=== PATIENT | female | born 1990 ===

== ENCOUNTER 2017-12-19 12:20 | Emergency (ER) | payer MEDICAID, OTHER ==
[~2017-12-19] VITALS: Ht 170.2 cm; Wt 104.6 kg
[~2017-12-19 12:20] MED LIST: CALC500T PO; DOCU-131 PO; IBUP-1222 PO; OXYC-302 PO; PREN1TAB56 PO
[2017-12-19 13:06] LABS: BASOPHILS # (AUTO) 0.25 x10^3/uL (0-0.1); BASOPHILS % (AUTO) 2 % (0-1); EOSINOPHILS # (AUTO) 0.34 x10^3/uL (0-0.4); EOSINOPHILS % (AUTO) 3 % (1-7); LYMPHOCYTES # (AUTO) 3.07 x10^3/uL (1-3.4); LYMPHOCYTES % (AUTO) 25 % (22-44); MD NO; MEAN CORPUSCULAR HEMOGLOBIN 31.2 pg (27.0-34.8); MEAN CORPUSCULAR HGB CONC 33.7 g/dL (32.4-35.8); MEAN CORPUSCULAR VOLUME 92.6 fL (80-100); MEAN PLATELET VOLUME 8.6 fL (7.4-10.4); MONOCYTES # (AUTO) 0.79 x10^3/uL (0.2-0.8); MONOCYTES % (AUTO) 6 % (2-9); NEUTROPHILS # (AUTO) 7.92 x10^3/uL (1.8-6.8); NEUTROPHILS % (AUTO) 64 % (42-75); PLATELET COUNT 363 x10^3/uL (130-400); RED CELL DISTRIBUTION WIDTH 12.5 % (9.6-15.2)
[2017-12-19] MEDS ORDERED: PREN1TAB60 PO (13:08)
[2017-12-19 13:17] LABS: MICROSCOPIC INDICATED
[2017-12-19 13:34] LABS: CULTURE INDICATED? NO
[2017-12-19 15:23] VITALS: BP 108/64
== END 2017-12-19 15:27 | disposition home or self-care (01) ==
LOC: ED 14:46
DX: O20.0 Threatened abortion (principal)
CPT/HCPCS: 36415; 76801; 81001; 84702; 85025; 99285

== ENCOUNTER 2017-12-22 18:22 | Emergency (ER) | payer MEDICAID, OTHER ==
[~2017-12-22] VITALS: Ht 170.2 cm; Wt 100.0 kg
[~2017-12-22 18:22] MED LIST changes: +PREN1TAB60 PO
[2017-12-22] MEDS ORDERED: SODIUM CHLORIDE FLUSH 10ML SYR IVF ONE ×2 (18:30→20:00)
[2017-12-22 18:52] LABS: BASOPHILS # (AUTO) 0.12 x10^3/uL (0-0.1); BASOPHILS % (AUTO) 1 % (0-1); EOSINOPHILS # (AUTO) 0.26 x10^3/uL (0-0.4); EOSINOPHILS % (AUTO) 2 % (1-7); LYMPHOCYTES # (AUTO) 2.67 x10^3/uL (1-3.4); LYMPHOCYTES % (AUTO) 23 % (22-44); MD NO; MEAN CORPUSCULAR HEMOGLOBIN 31.8 pg (27.0-34.8); MEAN CORPUSCULAR HGB CONC 34.4 g/dL (32.4-35.8); MEAN CORPUSCULAR VOLUME 92.3 fL (80-100); MEAN PLATELET VOLUME 8.8 fL (7.4-10.4); MONOCYTES # (AUTO) 0.54 x10^3/uL (0.2-0.8); MONOCYTES % (AUTO) 5 % (2-9); NEUTROPHILS # (AUTO) 8.04 x10^3/uL (1.8-6.8); NEUTROPHILS % (AUTO) 69 % (42-75); PLATELET COUNT 366 x10^3/uL (130-400); RED BLOOD COUNT 4.66 x10^6/uL (3.82-5.3); RED CELL DISTRIBUTION WIDTH 12.3 % (9.6-15.2)
[2017-12-22 19:00] LABS: ALBUMIN 3.9 g/dL (3.4-5.0); ANION GAP 8 mmol/L (5-15); CHLORIDE 105 mmol/L (98-107)
[2017-12-22] MEDS ORDERED: SODIUM CHLORIDE 0.9% 1,000 ML IV ONE (19:51)
[2017-12-22] MEDS ORDERED: MORPHINE SULFATE 4 MG/ML, 1ML ONE (19:52)
[2017-12-22] MEDS ORDERED: ONDANSETRON ODT 4 MG ONE (19:52)
[2017-12-22] MEDS ORDERED: ONDANSETRON ODT 4 MG PO ONE (20:00)
[2017-12-22] MEDS ORDERED: SODIUM CHLORIDE 0.9% 1,000ML IVBOLUS ONE (20:00)
[2017-12-22] MEDS ORDERED: MORPHINE SULFATE 4 MG/ML, 1ML IVPush PRN (20:00)
[2017-12-22 21:20] VITALS: BP 126/82
== END 2017-12-22 22:22 | disposition home or self-care (01) ==
LOC: ED 22:04
DX: O03.6 Delayed or excessive hemorrhage following complete or unspecified spontaneous abortion (principal)
CPT/HCPCS: 36415; 76801; 80048; 82040; 84702; 85025; 88305; 96374; 99285; J7030; Q0162

== ENCOUNTER 2018-04-03 05:59 | Day surgery (SDC) | payer MEDICAID ==
[~2018-04-03] VITALS: Ht 170.2 cm; Wt 98.8 kg
[2018-04-03] MEDS ORDERED: LACTATED RINGERS 1,000 ML IV SCH (06:24)
[2018-04-03] MEDS ORDERED: BUDE10.22 INH (06:26)
[2018-04-03] MEDS ORDERED: VASOPRESSIN 20 UNIT/ML, 1ML ONE (06:32)
[2018-04-03] MEDS ORDERED: BUPIVACAINE/PF-EPI 0.5% 1:200K ONE (06:32)
[2018-04-03 06:34] VITALS: BP 130/88
[2018-04-03] MEDS ORDERED: MIDAZOLAM 1 MG/ML, 2ML ONE (07:20)
[2018-04-03] MEDS ORDERED: FENTANYL PF 250 MCG/5ML ONE (07:20)
[2018-04-03] MEDS ORDERED: PROPOFOL 10 MG/ML, 20ML ONE (07:24)
[2018-04-03] MEDS ORDERED: NEOSTIGMINE 1 MG/ML, 10ML ONE (07:24)
[2018-04-03] MEDS ORDERED: GLYCOPYRROLATE 0.2MG/1ML, 5ML ONE (07:24)
[2018-04-03] MEDS ORDERED: DEXAMETHASONE 4 MG/ML, 1ML ONE (07:24)
[2018-04-03] MEDS ORDERED: ROCURONIUM 10 MG/ML,10ML ONE (07:24)
[2018-04-03] MEDS ORDERED: CEFAZOLIN 1,000 MG ONE (07:24)
[2018-04-03] MEDS ORDERED: ONDANSETRON 2MG/ML, 2ML ONE (07:24)
[2018-04-03] MEDS ORDERED: ACETAMINOPHEN 500 MG TABLET PO ONE (07:30)
[2018-04-03] MEDS ORDERED: GABAPENTIN 300 MG CAPSULE PO ONE (07:30)
[2018-04-03] MEDS ORDERED: METHYLENE BLUE 10 MG/ML 10ML ONE (07:48)
[2018-04-03] MEDS ORDERED: OXYcodone 5 MG/5 ML ORAL.SOL UDC PO PRN (08:30)
[2018-04-03] MEDS ORDERED: SCOPOLAMINE PATCH, 1.5MG PATCH.TD72 TD PRN (08:30)
[2018-04-03] MEDS ORDERED: LORazepam 2 MG/ML, 1ML IVPush PRN (08:30)
[2018-04-03] MEDS ORDERED: MEPERIDINE/PF 25MG/0.5ML IVPush PRN (08:30)
[2018-04-03] MEDS ORDERED: HYDROmorphone 2 MG/ML, 1ML IVPush PRN (08:30)
[2018-04-03] MEDS ORDERED: METOCLOPRAMIDE 5 MG/ML, 2ML IV PRN (08:30)
[2018-04-03] MEDS ORDERED: LABETALOL 5MG/ML, 20ML IV PRN (08:30)
[2018-04-03] MEDS ORDERED: ALBUTEROL/IPRATROPIUM 2.5MG/0.5MG, 3 ML NPPB PRN (08:30)
[2018-04-03] MEDS ORDERED: ALBUTEROL SULFATE 2.5 MG/3 ML ONE (08:44)
[2018-04-03] MEDS ORDERED: ALBUTEROL/IPRATROPIUM 2.5MG/0.5MG, 3 ML ONE (08:52)
[2018-04-03] MEDS ORDERED: FENTANYL PF 100 MCG/2ML ONE (08:55)
[2018-04-03] MEDS ORDERED: OXYcodone 5 MG/5 ML ORAL.SOL UDC ONE (08:56)
[2018-04-03] MEDS: FENTANYL PF 100 MCG/2ML IV PRN ×4 (08:59→09:26)
[2018-04-03] MEDS ORDERED: PROMETHAZINE 12.5 MG SUPP PR ONE (10:30)
[2018-04-03] MEDS ORDERED: morphine SULFATE 10 MG/ML, 1ML ONE ×2 (10:47→12:05)
[2018-04-03] MEDS: MORPHINE SULFATE 4 MG/ML, 1ML IVPush PRN ×2 (10:51→12:11)
[2018-04-03] MEDS ORDERED: OXYcodone/APAP 5/325MG TABLET PO PRN (12:00)
== END 2018-04-03 14:20 | disposition home or self-care (01) ==
LOC: OUT 05:59
PROVIDERS: ATTEND Obstetrics & Gynecology
DX: E28.2 Polycystic ovarian syndrome (principal); Q51.3 Bicornate uterus; N73.6 Female pelvic peritoneal adhesions (postinfective); J45.909 Unspecified asthma, uncomplicated; Z90.5 Acquired absence of kidney; Z98.890 Other specified postprocedural states
CPT/HCPCS: 58350; 58661; 81025; 94640; J0690; J1100; J2250; J2405; J2704; J2710; J3010; J3490; J7120; J7620; Q9968

== ENCOUNTER 2018-08-04 16:28 | Emergency (ER) | payer MEDICAID ==
[~2018-08-04] VITALS: Ht 170.2 cm; Wt 101.8 kg
[~2018-08-04 16:28] MED LIST changes: +BUDE10.22 INH
[2018-08-04] MEDS ORDERED: SODIUM CHLORIDE FLUSH 10ML SYR IVF ONE (17:00)
[2018-08-04] MEDS ORDERED: ONDANSETRON 2MG/ML, 2ML IVPush ONE (17:00)
[2018-08-04] MEDS ORDERED: MORPHINE SULFATE 4 MG/ML, 1ML IVPush PRN (17:00)
[2018-08-04 17:06] LABS: BASOPHILS # (AUTO) 0.03 x10^3/uL (0-0.1); BASOPHILS % (AUTO) 0 % (0-1); EOSINOPHILS # (AUTO) 0.32 x10^3/uL (0-0.4); EOSINOPHILS % (AUTO) 3 % (1-7); LYMPHOCYTES # (AUTO) 2.78 x10^3/uL (1-3.4); LYMPHOCYTES % (AUTO) 28 % (22-44); MD NO; MEAN CORPUSCULAR HEMOGLOBIN 30.9 pg (27.0-34.8); MEAN CORPUSCULAR HGB CONC 32.8 g/dL (32.4-35.8); MEAN CORPUSCULAR VOLUME 94.3 fL (80-100); MEAN PLATELET VOLUME 8.8 fL (7.4-10.4); MONOCYTES # (AUTO) 0.71 x10^3/uL (0.2-0.8); MONOCYTES % (AUTO) 7 % (2-9); NEUTROPHILS # (AUTO) 5.99 x10^3/uL (1.8-6.8); NEUTROPHILS % (AUTO) 61 % (42-75); PLATELET COUNT 326 x10^3/uL (130-400); RED BLOOD COUNT 4.78 x10^6/uL (3.82-5.3); RED CELL DISTRIBUTION WIDTH 12.1 % (9.6-15.2)
--- NOTE | 2018-08-04 17:12 | NUR ---
THIS IS A 27 Y/O FEMALE THAT ARRIVES FROM HOME FOR RIGHT FLANK PAIN THAT WRAPS TO HER ANTERIOR SIDE. PT DENIES TRUAMA OR MECHANISM OF INJURY. PT REPORTS ONLY HAVING ONE KIDNEY. PT REPROTS NO INCREASED URINARY FREQUENCY OR PAINFUL URINATION. PT REPORTS NO FEVERS OR LOOSE STOOLS. PT CONNECTED TO MONITORS AND CALL LIGHT IN REACH. VSS
[2018-08-04] MEDS ORDERED: MORPHINE SULFATE 4 MG/ML, 1ML ONE ×2 (17:15→19:43)
[2018-08-04] MEDS ORDERED: ONDANSETRON 2MG/ML, 2ML ONE (17:15)
[2018-08-04 17:18] LABS: ALANINE AMINOTRANSFERASE 36 U/L (12-78); ALBUMIN 3.8 g/dL (3.4-5.0); ANION GAP 7 mmol/L (5-15); CALCIUM 8.7 mg/dL (8.5-10.1); CHLORIDE 106 mmol/L (98-107); CREATININE 0.97 mg/dL (0.55-1.02)
[2018-08-04 17:23] LABS: ALKALINE PHOSPHATASE 71 U/L (45-117); BILIRUBIN,TOTAL 0.3 mg/dL (0.2-1.0); TOTAL PROTEIN 7.4 g/dL (6.4-8.2)
[2018-08-04 17:35] LABS: MICROSCOPIC NOT IND
--- NOTE | 2018-08-04 17:38 | NUR ---
PT MEDICATED FOR PAIN, PIV PLACED. PT TO CT
[2018-08-04 17:42] LABS: CULTURE INDICATED? NO
--- NOTE | 2018-08-04 18:54 | NUR ---
PT AT US AT THIS TIME. UNABLE TO MEDICATE.
--- NOTE | 2018-08-04 18:58 | NUR ---
REPORT TO JACKELYN PETERSON.
[2018-08-04 20:30] VITALS: BP 107/57
[2018-08-04] MEDS ORDERED: OXYcodone/APAP 5/325MG TABLET ONE (20:46)
--- NOTE | 2018-08-04 20:56 | NUR ---
Patient/Caregiver given discharge instructions and they have confirmed that they understand the instructions. Patient ambulatory with steady gait.
[2018-08-04] MEDS ORDERED: OXYcodone/APAP 5/325MG TABLET PO ONE (21:00)
== END 2018-08-04 20:57 | disposition home or self-care (01) ==
LOC: ED 18:21
DX: N83.201 Unspecified ovarian cyst, right side (principal)
CPT/HCPCS: 36415; 74176; 76830; 80053; 81003; 84703; 85025; 96374; 96375; 99284; J2270; J2405

== ENCOUNTER 2018-08-14 15:53 | Emergency (ER) | payer MEDICAID ==
[~2018-08-14] VITALS: Ht 170.2 cm; Wt 102.3 kg
--- NOTE | 2018-08-14 16:51 | NUR ---
PT TO US
[2018-08-14] MEDS ORDERED: ONDANSETRON ODT 4 MG PO ONE ×2 (17:00→20:00)
[2018-08-14] MEDS ORDERED: HYDROcodone/APAP 5/325 TABLET PO ONE (17:00)
[2018-08-14] MEDS ORDERED: ONDANSETRON ODT 4 MG ONE ×2 (17:26→19:34)
[2018-08-14] MEDS ORDERED: HYDROcodone/APAP 5/325 TABLET ONE (17:26)
--- NOTE | 2018-08-14 17:30 | NUR ---
PT RETURNED FROM US. UA COLLECTED AND URINE SAMPLE GIVEN TO CLOTHING MAN.
--- NOTE | 2018-08-14 17:41 | NUR ---
ENTERED ROOM, PT TEARFUL AND STATES "WHAT ARE YOU GOING TO DO, AM I GOING TO SURGERY" PT EDUCATED THAT WE NEED RESULTS OF LABS AND US BEFORE DETERMINING PLAN OF CARE. PT STATES "I'M NOT GOING TO LEAVE WITHOUT YOU DOING SOMETHING, YOU CAN'T JUST MEDICATE ME AND SEND ME HOME", PT EDUCATED AGAIN ON NEED FOR TEST RESULTS BEFORE DETERMINING PLAN OF CARE. PT ASKED IF WE CAN CALL AN OBGYN, PT AGAIN EDUCATED THAT WE NEED LAB AND US RESULTS BEFORE CALLING A SPECIALIST. PT TURNED AWAY FROM RN AND REFUSED TO TALK
[2018-08-14 17:47] LABS: BASOPHILS # (AUTO) 0.11 x10^3/uL (0-0.1); BASOPHILS % (AUTO) 1 % (0-1); EOSINOPHILS # (AUTO) 0.38 x10^3/uL (0-0.4); EOSINOPHILS % (AUTO) 4 % (1-7); LYMPHOCYTES # (AUTO) 3.18 x10^3/uL (1-3.4); LYMPHOCYTES % (AUTO) 29 % (22-44); MD NO; MEAN CORPUSCULAR HEMOGLOBIN 31.9 pg (27.0-34.8); MEAN CORPUSCULAR VOLUME 93.8 fL (80-100); MEAN PLATELET VOLUME 9.1 fL (7.4-10.4); MONOCYTES # (AUTO) 0.65 x10^3/uL (0.2-0.8); MONOCYTES % (AUTO) 6 % (2-9); NEUTROPHILS # (AUTO) 6.53 x10^3/uL (1.8-6.8); NEUTROPHILS % (AUTO) 60 % (42-75); PLATELET COUNT 346 x10^3/uL (130-400); RED BLOOD COUNT 4.45 x10^6/uL (3.82-5.3); RED CELL DISTRIBUTION WIDTH 12.1 % (9.6-15.2)
[2018-08-14 17:48] LABS: ALBUMIN 3.6 g/dL (3.4-5.0); ANION GAP 7 mmol/L (5-15); CALCIUM 8.9 mg/dL (8.5-10.1); CHLORIDE 106 mmol/L (98-107); CREATININE 0.86 mg/dL (0.55-1.02)
[2018-08-14 18:07] LABS: MICROSCOPIC AUTO
[2018-08-14 18:10] LABS: CULTURE INDICATED? NO
[2018-08-14] MEDS ORDERED: HYDROmorphone 2 MG/ML, 1ML IM PRN (18:30)
[2018-08-14] MEDS ORDERED: HYDROmorphone 2 MG/ML, 1ML ONE (18:47)
--- NOTE | 2018-08-14 18:51 | NUR ---
MD AT BEDSIDE, ADDITIONAL PAIN MEDICATION ORDERED, PT NOT TO BE DC'D AT THIS TIME. PAGE TO TIE BINDER
--- NOTE | 2018-08-14 19:36 | NUR ---
PT REQUESTING TO SPEAK TO MD BEFORE DC, NOTIFIED
--- NOTE | 2018-08-14 19:37 | NUR ---
Note michelle in EDM - 08/14/18 at 1938 by MIMI IV ESTABLISHED BY EMT STUDENT AND 2ND BC DRAWN. PT MEDICATED PER MAY. MED REC UPDATED. NEED STRAIGHT CATH UA
[2018-08-14 19:41] VITALS: BP 127/71
--- NOTE | 2018-08-14 19:42 | NUR ---
PT MEDICATED PER PT REQUEST PRIOR TO DC WITH 4 MG ZOFRAN ODT. VERBAL ORDER RECEIVED AND READ BACK FROM LUAN PAC.
== END 2018-08-14 19:43 | disposition home or self-care (01) ==
LOC: ED 16:49
DX: G89.29 Other chronic pain (principal); N83.291 Other ovarian cyst, right side; R10.2 Pelvic and perineal pain; J45.909 Unspecified asthma, uncomplicated; E66.9 Obesity, unspecified
CPT/HCPCS: 36415; 76830; 80048; 81001; 82040; 84703; 85025; 96372; 99284; J1170; Q0162

== ENCOUNTER 2018-09-24 16:16 | Emergency (ER) | payer MEDICAID ==
[~2018-09-24] VITALS: Ht 170.2 cm; Wt 103.3 kg
[2018-09-24 18:38] VITALS: BP 140/97
== END 2018-09-24 18:47 | disposition home or self-care (01) ==
LOC: ED 18:07
DX: O02.1 Missed abortion (principal); J45.909 Unspecified asthma, uncomplicated; E66.9 Obesity, unspecified; Z68.35 Body mass index [BMI] 35.0-35.9, adult; Z3A.00 Weeks of gestation of pregnancy not specified
CPT/HCPCS: 36415; 76801; 80048; 81001; 82040; 84702; 85025; 87086; 99284

== ENCOUNTER 2019-03-11 16:41 | Emergency (ER) | payer MEDICAID, OTHER ==
[~2019-03-11] VITALS: Ht 172.7 cm; Wt 109.6 kg
[~2019-03-11 16:41] MED LIST changes: -CALC500T PO; +CALC500T29 PO
[2019-03-11 17:28] LABS: CULTURE INDICATED? NO; MICROSCOPIC NOT IND
[2019-03-11 18:37] VITALS: BP 119/75
--- NOTE | 2019-03-11 18:42 | NUR ---
TASK RN: PT PRESENTING TO ER FOR PACHECO, BLURRED VISION, INCREASED THIRST AND UTI. SENT FROM . 17 WEEKS , HIGH RISK D/T 10 MISCARRIGAES, ENDOMETREOSIS AND PCOS. VSS. BLOOD SUGAR CHECKED, 76. PT STS LAST ATE AT 1330 TODAY. CALL LIGHT WITHIN REACH. MD TO BEDSIDE. AWAITING ADDITIONAL ORDERS AT THIS TIME
[2019-03-11] MEDS ORDERED: DIPHENHYDRAMINE 50 MG/ML, 1ML ONE (18:59)
[2019-03-11] MEDS ORDERED: METOCLOPRAMIDE 5 MG/ML, 2ML ONE (18:59)
[2019-03-11] MEDS ORDERED: METOCLOPRAMIDE 5 MG/ML, 2ML IVPush ONE (19:00)
[2019-03-11] MEDS ORDERED: DIPHENHYDRAMINE 50 MG/ML, 1ML IVPush ONE (19:00)
[2019-03-11] MEDS ORDERED: SODIUM CHLORIDE 0.9% 1,000ML IVBOLUS ONE (19:00)
[2019-03-11] MEDS ORDERED: SODIUM CHLORIDE FLUSH 10ML SYR IVF ONE (19:00)
[2019-03-11 19:03] LABS: ANION GAP 8 mmol/L (5-15); CALCIUM 8.6 mg/dL (8.5-10.1); CHLORIDE 107 mmol/L (98-107); CREATININE 0.74 mg/dL (0.55-1.02)
[2019-03-11 19:04] LABS: BASOPHILS # (AUTO) 0.12 x10^3/uL (0-0.1); BASOPHILS % (AUTO) 1 % (0-1); EOSINOPHILS # (AUTO) 0.32 x10^3/uL (0-0.4); EOSINOPHILS % (AUTO) 3 % (1-7); LYMPHOCYTES # (AUTO) 3.02 x10^3/uL (1-3.4); LYMPHOCYTES % (AUTO) 25 % (22-44); MD NO; MEAN CORPUSCULAR HEMOGLOBIN 31.5 pg (27.0-34.8); MEAN CORPUSCULAR HGB CONC 33.7 g/dL (32.4-35.8); MEAN CORPUSCULAR VOLUME 93.3 fL (80-100); MEAN PLATELET VOLUME 9.2 fL (7.4-10.4); MONOCYTES # (AUTO) 0.87 x10^3/uL (0.2-0.8); MONOCYTES % (AUTO) 7 % (2-9); NEUTROPHILS # (AUTO) 8.01 x10^3/uL (1.8-6.8); NEUTROPHILS % (AUTO) 65 % (42-75); PLATELET COUNT 299 x10^3/uL (130-400); RED BLOOD COUNT 4.39 x10^6/uL (3.82-5.3); RED CELL DISTRIBUTION WIDTH 12.5 % (9.6-15.2)
--- NOTE | 2019-03-11 19:19 | NUR ---
MEDICATED PER ORDERS, PT AMUBLATED TO BATHROOM W STEADY GAIT
== END 2019-03-11 20:03 | disposition home or self-care (01) ==
LOC: ED 19:50
DX: O26.892 Other specified pregnancy related conditions, second trimester (principal); R51 Headache; E86.0 Dehydration; J45.909 Unspecified asthma, uncomplicated; Z3A.17 17 weeks gestation of pregnancy
CPT/HCPCS: 80048; 81003; 82040; 82962; 85025; 93005; 96361; 96374; 96375; 99284; J1200; J2765; J7030; 99283

== ENCOUNTER 2019-04-16 11:49 | Observation (INO) | payer OTHER ==
[~2019-04-16] VITALS: Ht 170.2 cm; Wt 104.5 kg
[2019-04-16 15:27] VITALS: BP 132/65
[2019-04-16] MEDS ORDERED: AZITHROMYCIN 500 MG TABLET ONE (15:51)
[2019-04-16] MEDS ORDERED: AMPICILLIN 2 GM in SODIUM CHLORIDE 0.9% 100 ML IV SCH (16:00)
[2019-04-16] MEDS ORDERED: AZITHROMYCIN 500 MG TABLET PO ONE (16:00)
[2019-04-16] MEDS ORDERED: LACTATED RINGERS 1,000 ML IV SCH ×2 (17:00)
[2019-04-16] MEDS ORDERED: SODIUM CHLORIDE FLUSH 10ML SYR IVF SCH (21:00)
== END 2019-04-17 07:55 | disposition home or self-care (01) ==
LOC: LDOP 11:49 → LDIP 16:53 → LDOP 17:04 → LDIP 17:07
PROVIDERS: ADMIT Obstetrics & Gynecology; ATTEND Obstetrics & Gynecology
DX: O26.22 Pregnancy care for patient with recurrent pregnancy loss, second trimester (principal); O99.282 Endocrine, nutritional and metabolic diseases complicating pregnancy, second trimester; E28.2 Polycystic ovarian syndrome; O99.512 Diseases of the respiratory system complicating pregnancy, second trimester; J45.909 Unspecified asthma, uncomplicated; Q51.3 Bicornate uterus; Q60.0 Renal agenesis, unilateral; Z3A.22 22 weeks gestation of pregnancy
CPT/HCPCS: 76815; 84112; 89060; 96365; 99211; J0290; J7120; 96361; G0378; G0463; Q0114

== ENCOUNTER 2019-05-03 23:32 | Outpatient (CLI) | payer OTHER ==
[~2019-05-03] VITALS: Ht 172.7 cm; Wt 108.2 kg
[2019-05-03 23:55] VITALS: BP 129/78
== END 2019-05-04 00:40 | disposition home or self-care (01) ==
LOC: LDOP 23:32
PROVIDERS: ATTEND Obstetrics & Gynecology
DX: O26.852 Spotting complicating pregnancy, second trimester (principal); Z3A.25 25 weeks gestation of pregnancy
CPT/HCPCS: 99211; G0463

== ENCOUNTER 2019-06-14 17:28 | Outpatient (CLI) | payer OTHER ==
[~2019-06-14] VITALS: Ht 170.2 cm; Wt 108.0 kg
[2019-06-14 18:12] LABS: MICROSCOPIC AUTO
[2019-06-14] MEDS ORDERED: TERBUTALINE 1 MG/ML, 1ML ONE (18:53)
[2019-06-14] MEDS ORDERED: TERBUTALINE 1 MG/ML, 1ML SQ ONE (19:00)
== END 2019-06-14 20:21 | disposition home or self-care (01) ==
LOC: LDOP 17:28
PROVIDERS: ATTEND Obstetrics & Gynecology
DX: O26.893 Other specified pregnancy related conditions, third trimester (principal); R10.9 Unspecified abdominal pain; Z3A.31 31 weeks gestation of pregnancy
CPT/HCPCS: 59025; 81001; 82962; 87086; 87147; 96372; 99211; J3105; G0463

== ENCOUNTER 2019-06-22 14:10 | Outpatient (CLI) | payer OTHER ==
[2019-06-22 14:57] VITALS: BP 135/82
== END 2019-06-22 16:38 | disposition home or self-care (01) ==
LOC: LDOP 14:10
PROVIDERS: ATTEND Obstetrics & Gynecology
DX: Z34.83 Encounter for supervision of other normal pregnancy, third trimester (principal); Z3A.32 32 weeks gestation of pregnancy
CPT/HCPCS: 59025; 84112; 99211; G0463

== ENCOUNTER 2019-06-26 08:58 | Outpatient (CLI) | payer OTHER ==
[~2019-06-26] VITALS: Ht 170.2 cm; Wt 116.3 kg
[2019-06-26 09:18] VITALS: BP 129/79
[2019-06-26] MEDS ORDERED: INSU100I32 SQ-INSULIN (09:26)
== END 2019-06-26 10:58 | disposition home or self-care (01) ==
LOC: LDOP 08:58
PROVIDERS: ATTEND Obstetrics & Gynecology
DX: O26.893 Other specified pregnancy related conditions, third trimester (principal); Z3A.33 33 weeks gestation of pregnancy; Z79.1 Long term (current) use of non-steroidal anti-inflammatories (NSAID)
CPT/HCPCS: 59025; 99211; G0463

== ENCOUNTER 2019-07-03 21:02 | Inpatient (IN) | payer OTHER ==
[~2019-07-03] VITALS: Ht 170.2 cm; Wt 110.4 kg
[~2019-07-03 21:02] MED LIST changes: +INSU100I32 SQ-INSULIN
[2019-07-03] MEDS ORDERED: ACETAMINOPHEN 500 MG TABLET ONE (21:21)
[2019-07-03] MEDS ORDERED: ACETAMINOPHEN 500 MG TABLET PO ONE (21:25)
[2019-07-03] MEDS ORDERED: PLEASE ENTER HEIGHT AND WEIGHT MC SCH (21:30)
[2019-07-03 21:38] LABS: MICROSCOPIC INDICATED
[2019-07-03 21:44] LABS: ALANINE AMINOTRANSFERASE 23 U/L (12-78); ALBUMIN 2.3 g/dL (3.4-5.0); ANION GAP 9 mmol/L (5-15); CALCIUM 8.6 mg/dL (8.5-10.1); CHLORIDE 107 mmol/L (98-107); CREATININE 0.94 mg/dL (0.55-1.02)
[2019-07-03 21:46] LABS: ALKALINE PHOSPHATASE 204 U/L (45-117); BILIRUBIN,TOTAL 0.1 mg/dL (0.2-1.0); TOTAL PROTEIN 6.4 g/dL (6.4-8.2)
[2019-07-03 21:48] LABS: BASOPHILS # (AUTO) 0.04 x10^3/uL (0-0.1); BASOPHILS % (AUTO) 0 % (0-1); EOSINOPHILS # (AUTO) 0.13 x10^3/uL (0-0.4); EOSINOPHILS % (AUTO) 1 % (1-7); LYMPHOCYTES % (AUTO) 19 % (22-44); MD NO; MEAN CORPUSCULAR HEMOGLOBIN 31.2 pg (27.0-34.8); MEAN CORPUSCULAR HGB CONC 33.6 g/dL (32.4-35.8); MEAN CORPUSCULAR VOLUME 92.7 fL (80-100); MONOCYTES # (AUTO) 0.81 x10^3/uL (0.2-0.8); MONOCYTES % (AUTO) 7 % (2-9); NEUTROPHILS # (AUTO) 8.11 x10^3/uL (1.8-6.8); NEUTROPHILS % (AUTO) 72 % (42-75); PLATELET COUNT 257 x10^3/uL (130-400); RED BLOOD COUNT 4.38 x10^6/uL (3.82-5.3)
[2019-07-03] MEDS ORDERED: CEFAZOLIN PMX 1GM/50ML 50 ML IVPB ONE (22:30)
[2019-07-03] MEDS ORDERED: LACTATED RINGERS 1,000 ML IVBOLUS ONE (22:30)
[2019-07-03] MEDS ORDERED: METOCLOPRAMIDE 5 MG/ML, 2ML IV ONE (22:30)
[2019-07-03] MEDS ORDERED: SODIUM CITRATE/CITRIC ACID 30 ML UDC PO ONE (22:30)
[2019-07-03] MEDS ORDERED: ONDANSETRON 2MG/ML, 2ML IVPush ONE (22:30)
[2019-07-03] MEDS ORDERED: AZITHROMYCIN 500 MG in SODIUM CHLORIDE 0.9% 250 ML IV ONE (22:30)
[2019-07-03] MEDS ORDERED: METOCLOPRAMIDE 5 MG/ML, 2ML ONE (22:32)
[2019-07-03] MEDS ORDERED: NEWBORN KIT ONE (22:32)
[2019-07-03] MEDS ORDERED: SODIUM CITRATE/CITRIC ACID 30 ML UDC ONE (22:33)
[2019-07-03] MEDS ORDERED: OXYTOCIN 30U/ 0.9% NaCL 500ML 500 ML ONE (22:33)
[2019-07-03] MEDS ORDERED: MAGNESIUM SULFATE PMX 4GM/100M 100 ML ONE (22:47)
[2019-07-03] MEDS ORDERED: MAGNESIUM SULF. PMX 20GM/500ML 500 ML IV ONE (22:47)
[2019-07-03] MEDS ORDERED: LACTATED RINGERS 1,000 ML IV PRN (22:49)
[2019-07-03] MEDS ORDERED: morphine SULFATE/PF 0.5 MG/ML, 10ML ONE (22:55)
[2019-07-03] MEDS ORDERED: EPINEPHRINE 1 MG/ML, 1ML ONE (22:58)
[2019-07-03] MEDS ORDERED: MAGNESIUM SULFATE PMX 4GM/100M 100 ML IVPB ONE (23:00)
[2019-07-03] MEDS: MAGNESIUM SULF. PMX 20GM/500ML 500 ML IV SCH (23:34)
[2019-07-04] MEDS ORDERED: OXYTOCIN 10 UNITS/ML, 1ML ONE (01:28)
[2019-07-04] MEDS ORDERED: CEFAZOLIN 1,000 MG ONE (01:28)
[2019-07-04] MEDS ORDERED: ONDANSETRON 2MG/ML, 2ML ONE ×4 (01:28→21:39)
[2019-07-04] MEDS ORDERED: PHENYLEPHRINE 10 MG/ML ONE (01:28)
[2019-07-04] MEDS ORDERED: EPHEDRINE 50 MG/ML, 1ML ONE ×2 (01:28→02:39)
[2019-07-04] MEDS ORDERED: WATER-INJECTION,STERILE 10 ML IV ONE (01:28)
[2019-07-04] MEDS ORDERED: GLYCOPYRROLATE 0.2MG/1ML, 5ML ONE (01:58)
[2019-07-04] MEDS: LACTATED RINGERS 1,000 ML IV SCH ×6 (02:44→22:54)
[2019-07-04 02:50] VITALS: BP 119/74
[2019-07-04] MEDS ORDERED: CALCIUM CARBONATE 500 MG TAB.CHEW PO PRN (03:00)
[2019-07-04] MEDS ORDERED: MISOPROSTOL 200 MCG TABLET PR PRN (03:00)
[2019-07-04] MEDS ORDERED: ACETAMINOPHEN 325 MG TABLET PO SCH (03:00)
[2019-07-04] MEDS: OXYTOCIN 30U/ 0.9% NaCL 500ML 500 ML IV SCH ×3 (03:16→22:44)
[2019-07-04] MEDS ORDERED: FENTANYL/BUPIV./NS/PF 250 ML EPIDCONT SCH (03:22)
[2019-07-04] MEDS ORDERED: LACTATED RINGERS 1,000 ML IV SCH (03:22)
[2019-07-04] MEDS ORDERED: ONDANSETRON 2MG/ML, 2ML IVPush PRN (03:30)
[2019-07-04] MEDS ORDERED: LACTATED RINGERS 1,000 ML IVBOLUS PRN (03:30)
[2019-07-04] MEDS ORDERED: EPHEDRINE 50 MG/ML, 1ML IVPush PRN (03:30)
[2019-07-04] MEDS ORDERED: FENTANYL PF 500 MCG, BUPIVACAINE/PF 0.5%, 30ML 62.5 ML in SODIUM CHLORIDE 0.9% 177.5 ML EPIDCONT SCH (03:30)
[2019-07-04] MEDS ORDERED: ACETAMINOPHEN 325 MG TABLET ONE (05:34)
[2019-07-04] MEDS: ACETAMINOPHEN 325 MG TABLET PO SCH ×3 (06:20→21:00)
[2019-07-04] MEDS ORDERED: METOCLOPRAMIDE 5 MG/ML, 2ML ONE (07:00)
[2019-07-04] MEDS ORDERED: METOCLOPRAMIDE 5 MG/ML, 2ML IVPush PRN (07:00)
[2019-07-04] MEDS ORDERED: MAGNESIUM SULF. PMX 20GM/500ML 500 ML IV ONE ×2 (08:04→19:02)
[2019-07-04] MEDS: PRENATAL VIT/IRON/FA 1 EACH TABLET PO SCH (09:00)
[2019-07-04] MEDS: MAGNESIUM SULF. PMX 20GM/500ML 500 ML IV SCH ×2 (09:08→19:06)
[2019-07-04 13:51] VITALS: BP 123/83
[2019-07-04] MEDS: ONDANSETRON 2MG/ML, 2ML IVPush PRN ×2 (16:34→21:41)
[2019-07-04] MEDS ORDERED: OXYcodone IR 5MG TABLET ONE (21:39)
[2019-07-04] MEDS: OXYcodone IR 5MG TABLET PO PRN (21:40)
[2019-07-04] MEDS ORDERED: NITROFURANTOIN (MACROBID) 100 MG CAPSULE ONE (23:03)
[2019-07-04] MEDS: NITROFURANTOIN (MACROBID) 100 MG CAPSULE PO SCH (23:04)
[2019-07-05] MEDS ORDERED: OXYcodone IR 5MG TABLET ONE (02:08)
[2019-07-05] MEDS: OXYcodone IR 5MG TABLET PO PRN ×6 (02:13→20:54)
[2019-07-05] MEDS: LACTATED RINGERS 1,000 ML IV SCH ×5 (02:44→18:36)
[2019-07-05] MEDS: ACETAMINOPHEN 325 MG TABLET PO SCH ×2 (03:01→08:01)
[2019-07-05 03:39] VITALS: BP 138/87
[2019-07-05] MEDS: MAGNESIUM SULF. PMX 20GM/500ML 500 ML IV SCH (04:49)
[2019-07-05] MEDS: DOCUSATE 100 MG CAPSULE PO PRN ×2 (06:13→20:53)
[2019-07-05] MEDS: ONDANSETRON 2MG/ML, 2ML IVPush PRN (06:14)
[2019-07-05 07:15] VITALS: BP 137/92
[2019-07-05] MEDS: LACTOBACILLUS 1GM/ PACKET PO SCH ×3 (08:01→20:53)
[2019-07-05] MEDS: PRENATAL VIT/IRON/FA 1 EACH TABLET PO SCH (08:01)
[2019-07-05] MEDS: NITROFURANTOIN (MACROBID) 100 MG CAPSULE PO SCH ×2 (08:01→20:53)
[2019-07-05] MEDS: OXYTOCIN 30U/ 0.9% NaCL 500ML 500 ML IV SCH ×2 (08:44→18:37)
[2019-07-05 11:15] VITALS: BP 132/87
[2019-07-05] MEDS ORDERED: ACETAMINOPHEN 325 MG TABLET PO SCH ×2 (15:00)
[2019-07-05] MEDS ORDERED: MORPHINE SULFATE 4 MG/ML, 1ML IVPush PRN (15:00)
[2019-07-05 15:21] VITALS: BP 144/86
[2019-07-05] MEDS: ACETAMINOPHEN 500 MG TABLET PO SCH (20:54)
[2019-07-05] MEDS: SIMETHICONE 80 MG CHEW TAB PO PRN (20:55)
[2019-07-05 20:56] VITALS: BP 157/100
[2019-07-05 22:00] VITALS: BP 123/81
[2019-07-06] MEDS: OXYcodone IR 5MG TABLET PO PRN ×6 (01:45→23:06)
[2019-07-06] MEDS: LACTATED RINGERS 1,000 ML IV SCH ×2 (02:44→04:44)
[2019-07-06] MEDS: SIMETHICONE 80 MG CHEW TAB PO PRN ×3 (03:16→18:07)
[2019-07-06] MEDS: ACETAMINOPHEN 500 MG TABLET PO SCH ×4 (03:16→23:52)
[2019-07-06] MEDS: OXYTOCIN 30U/ 0.9% NaCL 500ML 500 ML IV SCH (04:44)
[2019-07-06 07:50] VITALS: BP 126/87
[2019-07-06] MEDS: LACTOBACILLUS 1GM/ PACKET PO SCH ×3 (10:00→21:05)
[2019-07-06] MEDS: NITROFURANTOIN (MACROBID) 100 MG CAPSULE PO SCH ×2 (10:02→21:04)
[2019-07-06] MEDS: DOCUSATE 100 MG CAPSULE PO PRN ×2 (10:02→21:04)
[2019-07-06] MEDS: PRENATAL VIT/IRON/FA 1 EACH TABLET PO SCH (10:02)
[2019-07-06 13:15] LABS: MEAN CORPUSCULAR HEMOGLOBIN 30.4 pg (27.0-34.8); MEAN CORPUSCULAR HGB CONC 32.8 g/dL (32.4-35.8); MEAN CORPUSCULAR VOLUME 92.7 fL (80-100); MEAN PLATELET VOLUME 9.1 fL (7.4-10.4); PLATELET COUNT 249 x10^3/uL (130-400); RED BLOOD COUNT 3.81 x10^6/uL (3.82-5.3); RED CELL DISTRIBUTION WIDTH 13.4 % (9.6-15.2)
[2019-07-06 14:06] LABS: BASOPHILS # (AUTO) 0.02 x10^3/uL (0-0.1); BASOPHILS % (AUTO) 0 % (0-1); EOSINOPHILS # (AUTO) 0.29 x10^3/uL (0-0.4); EOSINOPHILS % (AUTO) 2 % (1-7); LYMPHOCYTES # (AUTO) 1.49 x10^3/uL (1-3.4); LYMPHOCYTES % (AUTO) 12 % (22-44); MD SCAN; MONOCYTES # (AUTO) 0.46 x10^3/uL (0.2-0.8); MONOCYTES % (AUTO) 4 % (2-9); NEUTROPHILS # (AUTO) 10.24 x10^3/uL (1.8-6.8); NEUTROPHILS % (AUTO) 82 % (42-75)
[2019-07-06 19:20] VITALS: BP 139/84
[2019-07-07 00:45] VITALS: BP 139/81
[2019-07-07 04:45] VITALS: BP 138/91
[2019-07-07] MEDS: OXYcodone IR 5MG TABLET PO PRN ×4 (04:55→16:54)
[2019-07-07] MEDS: ACETAMINOPHEN 500 MG TABLET PO SCH ×3 (06:33→20:27)
[2019-07-07] MEDS: SIMETHICONE 80 MG CHEW TAB PO PRN ×2 (06:33→20:27)
[2019-07-07 08:30] VITALS: BP 138/86
[2019-07-07] MEDS: LACTOBACILLUS 1GM/ PACKET PO SCH ×3 (08:32→20:28)
[2019-07-07] MEDS: NITROFURANTOIN (MACROBID) 100 MG CAPSULE PO SCH ×2 (08:32→20:28)
[2019-07-07] MEDS: PRENATAL VIT/IRON/FA 1 EACH TABLET PO SCH (08:33)
[2019-07-07] MEDS: POLYETHYLENE GLYCOL 17 GM PACKET PO SCH (12:45)
[2019-07-07 19:30] VITALS: BP 158/90
[2019-07-07 20:00] VITALS: BP 162/91
[2019-07-07] MEDS: DOCUSATE 100 MG CAPSULE PO PRN (20:27)
[2019-07-07 20:41] LABS: BASOPHILS % (AUTO) 1 % (0-1); EOSINOPHILS # (AUTO) 0.13 x10^3/uL (0-0.4); EOSINOPHILS % (AUTO) 1 % (1-7); LYMPHOCYTES # (AUTO) 0.92 x10^3/uL (1-3.4); LYMPHOCYTES % (AUTO) 8 % (22-44); MD NO; MEAN CORPUSCULAR HGB CONC 33.7 g/dL (32.4-35.8); MEAN PLATELET VOLUME 9.3 fL (7.4-10.4); MONOCYTES # (AUTO) 0.54 x10^3/uL (0.2-0.8); MONOCYTES % (AUTO) 5 % (2-9); NEUTROPHILS # (AUTO) 9.28 x10^3/uL (1.8-6.8); NEUTROPHILS % (AUTO) 85 % (42-75); PLATELET COUNT 312 x10^3/uL (130-400); RED BLOOD COUNT 4.06 x10^6/uL (3.82-5.3); RED CELL DISTRIBUTION WIDTH 13.3 % (9.6-15.2)
[2019-07-07 20:47] LABS: ALANINE AMINOTRANSFERASE 24 U/L (12-78); ALBUMIN 2.2 g/dL (3.4-5.0); ANION GAP 7 mmol/L (5-15); CALCIUM 8.9 mg/dL (8.5-10.1); CHLORIDE 102 mmol/L (98-107); CREATININE 0.97 mg/dL (0.55-1.02)
[2019-07-07 20:50] LABS: ALKALINE PHOSPHATASE 147 U/L (45-117); BILIRUBIN,TOTAL 0.3 mg/dL (0.2-1.0); TOTAL PROTEIN 6.8 g/dL (6.4-8.2)
[2019-07-07 21:00] VITALS: BP 130/86
[2019-07-07 21:23] LABS: MICROSCOPIC INDICATED
[2019-07-07] MEDS ORDERED: PHARMACOKINETIC MONITORING MC PRN (22:00)
[2019-07-07] MEDS ORDERED: PHARMACOKINETIC CONSULTATION MC ONE (22:00)
[2019-07-07 22:12] LABS: CULTURE INDICATED? NO
[2019-07-07] MEDS: AMPICILLIN 2 GM in SODIUM CHLORIDE 0.9% 100 ML IV SCH (22:17)
[2019-07-07] MEDS: CLINDAMYCIN PMX 900MG/50ML 50 ML IV SCH (22:58)
[2019-07-08] VITALS (7 sets, daily range): BP systolic 122–149; BP diastolic 71–97
[2019-07-08] MEDS: SODIUM CHLORIDE 0.9% IV SCH (00:06)
[2019-07-08] MEDS: GENTAMICIN IV SCH (00:06)
[2019-07-08] MEDS: OXYcodone IR 5MG TABLET PO PRN ×5 (00:09→18:57)
[2019-07-08] MEDS: SIMETHICONE 80 MG CHEW TAB PO PRN ×4 (02:11→20:16)
[2019-07-08] MEDS: ACETAMINOPHEN 500 MG TABLET PO SCH ×4 (02:11→20:15)
[2019-07-08] MEDS: AMPICILLIN 2 GM in SODIUM CHLORIDE 0.9% 100 ML IV SCH ×4 (04:08→22:00)
[2019-07-08 05:21] LABS: ALBUMIN 2.1 g/dL (3.4-5.0); ANION GAP 9 mmol/L (5-15); CALCIUM 8.6 mg/dL (8.5-10.1); CHLORIDE 103 mmol/L (98-107)
[2019-07-08 05:26] LABS: ALANINE AMINOTRANSFERASE 24 U/L (12-78); ALKALINE PHOSPHATASE 127 U/L (45-117); BILIRUBIN,TOTAL 0.4 mg/dL (0.2-1.0); CREATININE 0.79 mg/dL (0.55-1.02); TOTAL PROTEIN 6.2 g/dL (6.4-8.2)
[2019-07-08 05:29] LABS: BASOPHILS # (AUTO) 0.06 x10^3/uL (0-0.1); BASOPHILS % (AUTO) 1 % (0-1); EOSINOPHILS % (AUTO) 1 % (1-7); LYMPHOCYTES # (AUTO) 1.21 x10^3/uL (1-3.4); LYMPHOCYTES % (AUTO) 14 % (22-44); MD NO; MEAN CORPUSCULAR HEMOGLOBIN 30.9 pg (27.0-34.8); MEAN CORPUSCULAR HGB CONC 33.6 g/dL (32.4-35.8); MEAN CORPUSCULAR VOLUME 91.9 fL (80-100); MEAN PLATELET VOLUME 9.5 fL (7.4-10.4); MONOCYTES # (AUTO) 0.55 x10^3/uL (0.2-0.8); MONOCYTES % (AUTO) 6 % (2-9); NEUTROPHILS # (AUTO) 6.64 x10^3/uL (1.8-6.8); NEUTROPHILS % (AUTO) 78 % (42-75); PLATELET COUNT 292 x10^3/uL (130-400); RED BLOOD COUNT 3.73 x10^6/uL (3.82-5.3); RED CELL DISTRIBUTION WIDTH 12.7 % (9.6-15.2)
[2019-07-08] MEDS: CLINDAMYCIN PMX 900MG/50ML 50 ML IV SCH ×3 (05:55→22:47)
[2019-07-08] MEDS: DOCUSATE 100 MG CAPSULE PO PRN ×2 (08:29→18:57)
[2019-07-08] MEDS: PRENATAL VIT/IRON/FA 1 EACH TABLET PO SCH (08:30)
[2019-07-08] MEDS: LACTOBACILLUS 1GM/ PACKET PO SCH ×3 (08:30→20:15)
[2019-07-08] MEDS: NITROFURANTOIN (MACROBID) 100 MG CAPSULE PO SCH ×2 (08:30→20:15)
[2019-07-08] MEDS: POLYETHYLENE GLYCOL 17 GM PACKET PO SCH (10:00)
[2019-07-09] MEDS: SODIUM CHLORIDE 0.9% IV SCH (00:02)
[2019-07-09] MEDS: GENTAMICIN IV SCH (00:02)
[2019-07-09] MEDS: OXYcodone IR 5MG TABLET PO PRN ×6 (00:03→20:01)
[2019-07-09 00:15] VITALS: BP 147/94
[2019-07-09] MEDS: ACETAMINOPHEN 500 MG TABLET PO SCH ×4 (02:28→20:01)
[2019-07-09] MEDS: SIMETHICONE 80 MG CHEW TAB PO PRN ×2 (02:28→08:20)
[2019-07-09 04:00] VITALS: BP 152/94
[2019-07-09] MEDS: AMPICILLIN 2 GM in SODIUM CHLORIDE 0.9% 100 ML IV SCH ×4 (04:00→22:02)
[2019-07-09] MEDS: CLINDAMYCIN PMX 900MG/50ML 50 ML IV SCH ×3 (06:21→22:35)
[2019-07-09 07:45] VITALS: BP 144/96
[2019-07-09] MEDS ORDERED: BISACODYL 10 MG SUPP PR PRN (08:00)
[2019-07-09] MEDS: LACTOBACILLUS 1GM/ PACKET PO SCH ×3 (08:20→20:02)
[2019-07-09] MEDS: niFEDipine ER 60 MG TABLET.ER PO SCH (08:20)
[2019-07-09] MEDS: NITROFURANTOIN (MACROBID) 100 MG CAPSULE PO SCH ×2 (08:20→20:02)
[2019-07-09] MEDS: PRENATAL VIT/IRON/FA 1 EACH TABLET PO SCH (08:20)
[2019-07-09] MEDS: DOCUSATE 100 MG CAPSULE PO PRN (08:20)
[2019-07-09] MEDS: POLYETHYLENE GLYCOL 17 GM PACKET PO SCH (09:00)
[2019-07-09 12:05] VITALS: BP 124/77
[2019-07-09 16:15] VITALS: BP 121/81
[2019-07-09 20:30] VITALS: BP 136/93
[2019-07-10] MEDS: OXYcodone IR 5MG TABLET PO PRN ×4 (00:14→12:39)
[2019-07-10 00:15] VITALS: BP 126/90
[2019-07-10] MEDS: SODIUM CHLORIDE 0.9% IV SCH (00:29)
[2019-07-10] MEDS: GENTAMICIN IV SCH (00:29)
[2019-07-10 04:00] VITALS: BP 131/89
[2019-07-10] MEDS: AMPICILLIN 2 GM in SODIUM CHLORIDE 0.9% 100 ML IV SCH (04:04)
[2019-07-10] MEDS: ACETAMINOPHEN 500 MG TABLET PO SCH ×2 (04:04→12:39)
[2019-07-10 04:51] LABS: CREATININE 0.94 mg/dL (0.55-1.02)
[2019-07-10] MEDS ORDERED: DICLOXACILLIN 500 MG CAPSULE PO SCH (06:30)
[2019-07-10] MEDS ORDERED: AZITHROMYCIN 500 MG TABLET PO ONE (06:30)
[2019-07-10] MEDS ORDERED: DICLOXACILLIN 250 MG CAPSULE PO SCH (06:30)
[2019-07-10 08:50] VITALS: BP 131/93
[2019-07-10] MEDS: LACTOBACILLUS 1GM/ PACKET PO SCH (08:56)
[2019-07-10] MEDS: niFEDipine ER 60 MG TABLET.ER PO SCH (08:56)
[2019-07-10] MEDS: PRENATAL VIT/IRON/FA 1 EACH TABLET PO SCH (08:56)
[2019-07-10] MEDS: POLYETHYLENE GLYCOL 17 GM PACKET PO SCH (08:57)
[2019-07-10 12:47] VITALS: BP 115/75
[2019-07-10] MEDS ORDERED: ACET325T14 PO (15:05)
[2019-07-10] MEDS ORDERED: DICL500C PO (15:06)
[2019-07-10] MEDS ORDERED: OXYC-302 PO (15:06)
[2019-07-10] MEDS ORDERED: AZIT500T10 PO (15:07)
[2019-07-10] MEDS ORDERED: NIFE60TA2 PO (15:08)
== END 2019-07-10 15:40 | disposition home or self-care (01) | DRG 783 ==
LOC: LDOP 21:02 → LDIP 22:30 → 2NW 07-05 03:00
PROVIDERS: ADMIT Obstetrics & Gynecology; ATTEND Obstetrics & Gynecology
PROC: 10D00Z1 Extraction of Products of Conception, Low, Open Approach (ICD-10-PCS; principal; 2019-07-04)
PROC: 0UT70ZZ Resection of Bilateral Fallopian Tubes, Open Approach (ICD-10-PCS; 2019-07-04)
DX: O34.211 Maternal care for low transverse scar from previous cesarean delivery (principal); J18.9 Pneumonia, unspecified organism; O60.13X0 Preterm labor second trimester with preterm delivery third trimester, not applicable or unspecified; O75.3 Other infection during labor; O23.43 Unspecified infection of urinary tract in pregnancy, third trimester; Q60.0 Renal agenesis, unilateral; O26.893 Other specified pregnancy related conditions, third trimester; O32.1XX0 Maternal care for breech presentation, not applicable or unspecified; O34.03 Maternal care for unspecified congenital malformation of uterus, third trimester; O99.214 Obesity complicating childbirth; O99.824 Streptococcus B carrier state complicating childbirth; O99.52 Diseases of the respiratory system complicating childbirth; O24.424 Gestational diabetes mellitus in childbirth, insulin controlled; E28.2 Polycystic ovarian syndrome; O14.94 Unspecified pre-eclampsia, complicating childbirth; Z79.51 Long term (current) use of inhaled steroids; Z37.0 Single live birth; Z3A.34 34 weeks gestation of pregnancy; Q51.3 Bicornate uterus; Z30.2 Encounter for sterilization; Z88.6 Allergy status to analgesic agent; Z91.040 Latex allergy status; Z11.59 Encounter for screening for other viral diseases
CPT/HCPCS: 36415; 71045; 76856; 80053; 80170; 81001; 82565; 82570; 82803; 82962; 83735; 84156; 84550; 85025; 86592; 86850; 86900; 87040; 87086; 87147; 88302; G0378; J0171; J0290; J0690; J2274; J2405; J1580; J2270; J2370; J2590; J2765; J3475; J7120; U0001

== ENCOUNTER 2019-07-30 15:49 | Emergency (ER) | payer OTHER ==
[~2019-07-30] VITALS: Ht 170.2 cm; Wt 107.0 kg
[~2019-07-30 15:49] MED LIST changes: +ACET325T14 PO; +AZIT500T10 PO; +DICL500C PO; +NIFE60TA2 PO
--- NOTE | 2019-07-30 16:45 | NUR ---
"MY OB SENT ME. THREE WEEKS AGO I HAD AN EMERGENCY AND HAD MY DAUGHTER. NOW I AM HAVING LEG PAIN IN BOTH OF MY LEGS." REDNESS AND SWELLING BILATERALLY LE. +SOB. PT STATES "HAD PNA AFTER MY CSECTION." DENIES FEVERS AND CHILLS. DENIES COUGH OR SORE THROAT. HX OF ASTHMA. PT STATED WAS TESTED "TWICE" FOR THE "CAREY" AND WAS NEGATIVE BOTH TIMES. PT PLACED ON MONITOR. VS STABLE. WILL CONTINUE TO MONITOR PT.
[2019-07-30 16:56] LABS: BASOPHILS # (AUTO) 0.13 x10^3/uL (0-0.1); BASOPHILS % (AUTO) 2 % (0-1); EOSINOPHILS # (AUTO) 0.16 x10^3/uL (0-0.4); EOSINOPHILS % (AUTO) 2 % (1-7); LYMPHOCYTES # (AUTO) 2.24 x10^3/uL (1-3.4); LYMPHOCYTES % (AUTO) 27 % (22-44); MD NO; MEAN CORPUSCULAR HEMOGLOBIN 30.1 pg (27.0-34.8); MEAN CORPUSCULAR HGB CONC 33.3 g/dL (32.4-35.8); MEAN CORPUSCULAR VOLUME 90.4 fL (80-100); MEAN PLATELET VOLUME 9.1 fL (7.4-10.4); MONOCYTES % (AUTO) 6 % (2-9); NEUTROPHILS # (AUTO) 5.15 x10^3/uL (1.8-6.8); NEUTROPHILS % (AUTO) 63 % (42-75); PLATELET COUNT 391 x10^3/uL (130-400); RED CELL DISTRIBUTION WIDTH 13.4 % (9.6-15.2)
[2019-07-30] MEDS ORDERED: SODIUM CHLORIDE FLUSH 10ML SYR IVF ONE (17:00)
[2019-07-30 17:09] LABS: ALBUMIN 3.7 g/dL (3.4-5.0); ANION GAP 9 mmol/L (5-15); CHLORIDE 108 mmol/L (98-107)
[2019-07-30 17:13] LABS: TROPONIN I < 0.015 ng/mL (0.000-0.045)
[2019-07-30 18:29] VITALS: BP 112/74
== END 2019-07-30 18:33 | disposition home or self-care (01) ==
LOC: ED 18:23
DX: R60.0 Localized edema (principal); R94.31 Abnormal electrocardiogram [ECG] [EKG]; R06.02 Shortness of breath
CPT/HCPCS: 36415; 71045; 80048; 82040; 83880; 84484; 85025; 85379; 93005; 93970; 99285

== ENCOUNTER 2020-02-05 21:04 | Emergency (ER) | payer MEDICAID, OTHER ==
[~2020-02-05] VITALS: Ht 170.2 cm; Wt 105.2 kg
[2020-02-05] MEDS ORDERED: SODIUM CHLORIDE FLUSH 10ML SYR IVF ONE (21:30)
[2020-02-05] MEDS ORDERED: ONDANSETRON 2MG/ML, 2ML IVPush ONE (21:30)
[2020-02-05] MEDS ORDERED: MORPHINE SULFATE 4 MG/ML, 1ML IVPush PRN (21:30)
[2020-02-05 21:53] LABS: BASOPHILS % (AUTO) 1 % (0-1); EOSINOPHILS % (AUTO) 2 % (1-7); LYMPHOCYTES % (AUTO) 30 % (22-44); MEAN CORPUSCULAR HEMOGLOBIN 30.9 pg (27.0-34.8); MEAN CORPUSCULAR HGB CONC 33.9 g/dL (32.4-35.8); MEAN PLATELET VOLUME 8.8 fL (7.4-10.4); MONOCYTES % (AUTO) 5 % (2-9); NEUTROPHILS % (AUTO) 61 % (42-75); PLATELET COUNT 334 x10^3/uL (130-400); RED BLOOD COUNT 4.75 x10^6/uL (3.82-5.3); RED CELL DISTRIBUTION WIDTH 12.4 % (9.6-15.2)
[2020-02-05 21:58] LABS: ALANINE AMINOTRANSFERASE 36 U/L (12-78); ALBUMIN 3.9 g/dL (3.4-5.0); ANION GAP 6 mmol/L (5-15); CHLORIDE 106 mmol/L (98-107); CREATININE 0.88 mg/dL (0.55-1.02)
[2020-02-05 22:03] LABS: ALKALINE PHOSPHATASE 79 U/L (45-117); BILIRUBIN,TOTAL 0.4 mg/dL (0.2-1.0); TOTAL PROTEIN 7.6 g/dL (6.4-8.2)
[2020-02-05 22:17] LABS: MD NO
[2020-02-05] MEDS ORDERED: MORPHINE SULFATE 4 MG/ML, 1ML ONE (23:52)
[2020-02-05] MEDS ORDERED: ONDANSETRON 2MG/ML, 2ML ONE (23:52)
--- NOTE | 2020-02-06 00:42 | NUR ---
pt reprots mild help with pain. Pt requested to speak with Dr Emmanuel to inquire why shes not being admitted. Dr Emmanuel spoke with pt at detail. Rx given, dc instruct and referrals. Pt upset but states she understands. VSS. Pt has ride. IV dc cath intact.
[2020-02-06 00:45] VITALS: BP 125/74
== END 2020-02-06 00:57 | disposition home or self-care (01) ==
LOC: ED 02-06 00:48
DX: R10.11 Right upper quadrant pain (principal); R11.0 Nausea; M54.5 Low back pain; J45.909 Unspecified asthma, uncomplicated; E66.9 Obesity, unspecified; Z72.9 Problem related to lifestyle, unspecified
CPT/HCPCS: 36415; 76700; 80053; 83690; 84703; 85025; 96374; 96375; 99284; J2270; J2405

== ENCOUNTER → 2020-02-09 | Outpatient (CLI) | payer MEDICAID | END | disposition home or self-care (01) | LOC: RAD 12:51 | PROVIDERS: ATTEND Surgery | DX: R10.11 Right upper quadrant pain (principal) | CPT/HCPCS: 78227; A9537 ==